=== PATIENT | male | born 1985 | race Caucasian/White ===

== ENCOUNTER 2023-11-04 17:20 | Emergency (ER) | payer BC, SELFPAY ==
[2023-11-04 17:22] VITALS: BP 141/103; BMI 29.6
[2023-11-04 17:42] LABS: % Basophils 0.7 % (0-2); % Eosinophils 2.2 % (0-6); % Immature Granulocytes 0.4 % (0-0.5); % Lymphocytes 28.4 % (20.5-51.1); % Monocytes 8.2 % (1.7-9.3); % Neutrophils 60.1 % (42.2-75.2); Absolute Basophils 0.1 10^3/uL (0-0.2); Absolute Eosinophils 0.2 10^3/uL (0-0.7); Absolute Lymphocytes 2.5 10^3/uL (1.2-3.4); Absolute Monocytes 0.7 10^3/uL (0.1-0.6); Absolute Neutrophils 5.4 10^3/uL (1.4-6.5); Hematocrit 43.6 % (39.0-52.0); Hemoglobin 15.7 g/dL (13.0-18.0); Mean Corpuscular Hgb 31.6 pg (27.0-31.0); Mean Corpuscular Volume 87.7 fL (80.0-94.0); Mean Platelet Volume 10.6 fL (7.4-10.4); Nucleated Red Blood Cells % 0 % (-); Platelet Count 214 10^3/uL (130-400); Red Blood Cell Count 4.97 10^6/uL (4.70-6.10); Red Cell Dist. Width 12.6 % (11.5-14.5)
[2023-11-04 18:03] LABS: ALT (SGPT) 31 U/L (0-50); AST (SGOT) 23 U/L (17-59); Albumin 4.9 g/dl (3.5-5.0); Alkaline Phosphatase 50 U/L (38-126); Blood Urea Nitrogen 15 mg/dl (9-20); Calcium 9.5 mg/dl (8.4-10.2); Carbon Dioxide 30 mmol/L (22-30); Chloride 96 mmol/L (98-107); Estimated Creatinine Clearance 101 ml/min; Glucose 102 mg/dl (70-99); Potassium 3.9 mmol/L (3.5-5.1); Sodium 136 mmol/L (135-145); Total Bilirubin 0.7 mg/dl (0.2-1.3); Total Protein 7.8 g/dl (6.3-8.2); eGFR > 60.00
[2023-11-04 18:10] LABS: Troponin I < 0.012 ng/ml
[2023-11-04 20:21] LABS: Troponin I < 0.012 ng/ml
[2023-11-04 20:49] VITALS: BP 131/84
--- NOTE | 2023-11-04 23:48 | ED.GENMED ---
History of Present Illness
General
Chief Complaint: Chest Pain
Source: patient
Exam Limitations: none
Time Seen by Provider: 11/04/23 18:46
Nursing documentation reviewed up to this point in time: agreed with
Travel History
Have you had any contact with someone who has COVID-19?: No
Do you have any symptoms of coronavirus? Fever > 100 degrees, chills, cough, shortness of breath, sore throat, loss of taste or smell, muscle aches, or headache?: No
History of Present Illness
History of Present Illness:
Patient to ED with complaint of 20 mnute episode of chest pain while driving home from work tonight. Reports sharp stabbing pain with dull ache in jaw. +nausea, no vomiting. No SOB. Had a prior episode of CP in 2019 and was seen in office by
Tiffani. Had outpatient echo and stress test, both normal. He was advised to continue following with cardiology but has not been seen since. Brought to ED by spouse for eval.
Past History
Past History
ED Past Medical History: None
ED Past Surgical History: None
Review of Systems
Review of Systems
Allergies reviewed?: Yes
All Other Systems: ROS reviewed and negative except as documented in HPI and ROS
Constitutional: Reports no symptoms
EENT: Reports no symptoms
Respiratory: Reports no symptoms
Cardiac: Reports chest pain (sharp central chest pain radiating to jaw [employer] SKATING RINK)
ABD/GI: Reports no symptoms
: Reports no symptoms
Musculoskeletal: Reports no symptoms
Skin: Reports no symptoms
Neurological: Reports no symptoms
Psychiatric: Reports no symptoms
Phy Exam
General Physical Exam
General Presentation: well appearing and no apparent distress
General age: appears stated age
General Skin: warm and dry
General Habitus: normal
General Mental: alert
General Hydration: appears well hydrated
Cardiovascular Exam
Cardiovascular Exam: regular rate/rhythm and no edema
Pulmonary Exam
Pulmonary Exam: lungs clear and no respiratory distress
Gastrointestinal Exam
Gastrointestinal Exam: non tender and soft
Musculoskeletal Exam
Musculoskeletal Exam: full ROM
Skin Exam
Skin Exam: normal color, warm/dry and no rash
Psychiatric Exam
Psychiatric Exam: normal mood/affect
Scores
Heart Score for Chest Pain Patients
STEMI patient?: No
History: Slightly or Non-Suspicious
ECG: Normal
Age: </= 45 years
Risk Factors: No Risk Factors
Troponin: </= Normal Limit
Heart Score for Chest Pain Patients: 0
Heart Score Risk: 2.5% MACE over next 6 weeks
Course
Orders/Labs/Results
Orders:
Orders
11/04/23 17:25
Electrocardiogram (*1) Urgent
Reason for Study: Chest Pain
EKG- Treatment ONCE
11/04/23 17:38
Complete Blood Count/With Diff Urgent
Comprehensive Metabolic Panel Urgent
Troponin I Urgent
11/04/23 19:48
Troponin I Urgent
Abnormal Lab Results
11/04/23
17:38
MCH 31.6 H pg
(27.0-31.0)
MPV 10.6 H fL
(7.4-10.4)
Absolute Monos (auto) 0.7 H 10^3/uL
(0.1-0.6)
Chloride 96 L mmol/L
(98-107)
Glucose 102 H mg/dl
(70-99)
11/04/23 17:38
11/04/23 17:38
Vital Signs
Initial and Last Documented VS:
Initial Vital Signs
Temp Pulse Resp BP Pulse Ox
98.5 F 77 16 141/103 99
11/04/23 17:22 11/04/23 17:22 11/04/23 17:22 11/04/23 17:22 11/04/23 17:22
Last Documented Vital Signs
Temp Pulse Resp BP Pulse Ox
98.5 F 67 16 131/84 98
11/04/23 17:22 11/04/23 20:49 11/04/23 20:49 11/04/23 20:49 11/04/23 20:49
*Pulse Oximetry
Patient hypoxic: no
*EKG
Interpretation: normal
Rate: normal
Rhythm: sinus
*Critical Care Note
Total Time (30-74mins, 75-104mins- exclusive of procedures): Not Applicable
Update Note
Update Note:
Patient to ED with sudden onset of sharp central chest pain with radiation to jaw. Symptoms resolved prior to coming to ED. Asymptomatic while in dept. Labs reviewed, troponin neg x2, EKG NSR. He is discharged home and will follow up with
cardiology. Given instructions on s/s to return to and he is agreeable to plan
ED Attending Note
-
Portions of this chart may have been created with voice recognition software.� Occasional wrong word or��sound alike� substitutions may have occurred due to the inherent limitations of voice recognition software.
Discharge Plan
Departure
Patient Disposition: Home (Routine Discharge)
Date of Disposition: 11/04/23
Time of Disposition: 20:28
Patient with high blood pressure during this ER visit?: No
Condition: Good
Covid-19: Not Applicable
Discharge Problem:
Chest pain
Instructions: Chest Pain CBC Follow Up
Referrals:
Justin Nixon MD [Active] - Call in 1-3 days for appt
Zeus Tong DO [Family Provider] -
Activity Restrictions/Additional Instructions:
Return to the emergency department immediately for return of your symptoms or any further concerns.
Interventions
Interventions:
*Risk Screen - Suicide Last Done: 11/04/23 17:22
*General Assessment Last Done: 11/04/23 20:52
*Neglect/Abuse Screening Last Done: 11/04/23 17:22
ED- Fall Risk Assessment Last Done: 11/04/23 20:52
*ED COVID-19 Vaccine History Last Done: 11/04/23 17:22
*Nursing Disposition Last Done: 11/04/23 20:52
ED- Cardiac Assessment Last Done: 11/04/23 20:49
Discharge Date and Time
Discharge Date/Time: 11/04/23 20:53
Print Language: COMORAN
== END 2023-11-04 20:53 | disposition home or self-care (01) ==
LOC: EMR 17:20
PROVIDERS: Emergency Medicine; Nurse Practitioner; EMERGENCY PHYSICIAN Emergency Medicine; FAMILY PHYSICIAN Internal Medicine
DX: R07.89 Other chest pain (principal)
CPT/HCPCS: 99284; 80053; 84484; 85025; 93005

== ENCOUNTER → 2023-12-14 12:46 | Outpatient (REF) | payer BC, SELFPAY | LOC: HWRCS 12:46 | PROVIDERS: ATTENDING PHYSICIAN Internal Medicine Cardiovascular Disease; FAMILY PHYSICIAN Internal Medicine | DX: R94.31 Abnormal electrocardiogram [ECG] [EKG] (principal); R07.89 Other chest pain | CPT/HCPCS: 93306 ==

== ENCOUNTER → 2023-12-15 10:18 | Outpatient (REF) | payer BC, SELFPAY | LOC: RCS 10:18 | PROVIDERS: ATTENDING PHYSICIAN Internal Medicine Cardiovascular Disease; FAMILY PHYSICIAN Internal Medicine | DX: R94.31 Abnormal electrocardiogram [ECG] [EKG] (principal); R07.89 Other chest pain | CPT/HCPCS: 93017 ==